=== PATIENT | male | born 1970 | race Caucasian/White ===

== ENCOUNTER 2024-12-21 20:39 | Emergency (ER) | payer OTHER ==
[~2024-12-21] VITALS: Ht 157.5 cm; Wt 81.6 kg
[2024-12-21] MEDS ORDERED: KETOROLAC TROMETHAMINE INJ 30 MG/ML VIAL ONE (21:28)
[2024-12-21] MEDS ORDERED: methylPREDNISolone SOD SUCC 125 MG/2ML VIAL ONE (21:28)
[2024-12-21] MEDS ORDERED: BACLOFEN (10 MG) 10 MG TABLET ONE (21:28)
[2024-12-21] MEDS ORDERED: BACL5TAB PO (21:32)
[2024-12-21] MEDS ORDERED: KETO10TA2 PO (21:32)
[2024-12-21] MEDS: methylPREDNISolone SOD SUCC 125 MG/2ML VIAL IM ONE (21:37)
[2024-12-21] MEDS: BACLOFEN (10 MG) 10 MG TABLET PO ONE (21:38)
[2024-12-21] MEDS: KETOROLAC TROMETHAMINE INJ 30 MG/ML VIAL IM ONE (21:38)
[2024-12-21 22:06] VITALS: BP 142/105; TEMP 98.6; O2SAT 98
== END 2024-12-21 22:07 | disposition home or self-care (01) ==
LOC: ER 20:44
DX: M54.31 Sciatica, right side (principal); I10 Essential (primary) hypertension; Z79.899 Other long term (current) drug therapy
CPT/HCPCS: 99284; 96372; J1885; J2919